=== PATIENT | female | born 1965 | race Caucasian/White ===

== ENCOUNTER → 2018-06-12 | Outpatient (CLI) | payer BC | END | disposition home or self-care (01) | LOC: CFH 07:43 | PROVIDERS: ATTEND Nurse Practitioner Family | DX: Z12.31 Encounter for screening mammogram for malignant neoplasm of breast (principal); R59.0 Localized enlarged lymph nodes; R91.8 Other nonspecific abnormal finding of lung field | CPT/HCPCS: 71250; 77063; 77067 ==

== ENCOUNTER 2018-12-08 16:17 | Emergency (ER) | payer BC ==
[~2018-12-08] VITALS: Ht 162.6 cm; Wt 49.4 kg
[2018-12-08 16:21] VITALS: BP 137/84
[2018-12-08] MEDS ORDERED: HYDROcodone/APAP 5/325 TABLET PO ONE (18:00)
[2018-12-08] MEDS ORDERED: HYDROcodone/APAP 5/325 TABLET ONE (18:08)
--- NOTE | 2018-12-08 18:57 | NUR ---
Report from [facility] Nunes. Assumed care of patient at this time. Patient/Caregiver given discharge instructions and they have confirmed that they understand the instructions. Patient ambulatory with steady gait. Addendum: 12/08/18 at 1858 by STEVIE Family driving patient home for safe DC.
== END 2018-12-08 18:59 | disposition home or self-care (01) ==
LOC: ED 18:30
DX: S16.1XXA Strain of muscle, fascia and tendon at neck level, initial encounter (principal); S43.52XA Sprain of left acromioclavicular joint, initial encounter; S00.93XA Contusion of unspecified part of head, initial encounter; V87.8XXA Person injured in other specified noncollision transport accidents involving motor vehicle (traffic), initial encounter; Y93.89 Activity, other specified; Y92.488 Other paved roadways as the place of occurrence of the external cause; Y99.8 Other external cause status
CPT/HCPCS: 70450; 72125; 99284

== ENCOUNTER → 2020-04-07 | Outpatient (CLI) | payer BC | END | disposition home or self-care (01) | LOC: CFH 14:45 | PROVIDERS: ATTEND Family Medicine | DX: N63.32 Unspecified lump in axillary tail of the left breast (principal) | CPT/HCPCS: 77066; G0279 ==